=== PATIENT | female | born 1945 | race Two or more races ===

== ENCOUNTER 2024-06-24 20:38 | Emergency (ER) | payer OTHER ==
[~2024-06-24] VITALS: Ht 162.6 cm; Wt 72.6 kg
[2024-06-24] MEDS ORDERED: BRILINTA90 MG (20:42)
[2024-06-24] MEDS ORDERED: ROSUVASTATIN CAL5 MG (20:42)
[2024-06-24 21:57] LABS: HEMATOCRIT 42.5 % (36.0-45.00); HEMOGLOBIN 14.1 g/dL (12.0-15.00); MEAN CELL VOLUME 89.9 fL (80.00-100.00); MEAN CORPUSCULAR HEMOGLOBIN 29.7 pg (27.00-32.0); MEAN CORPUSCULAR HGB CONC 33.1 g/dl (32.0-36.0); PLATELET COUNT 225 K/uL (150-450); RED BLOOD COUNT 4.73 M/uL (4.00-6.00); RED CELL DISTRIBUTION WIDTH 14.9 % (11.5-14.5)
[2024-06-24 22:29] LABS: ALBUMIN 3.8 gm/dL (3.4-5.0); BILIRUBIN TOTAL 0.31 mg/dL (0.3-1.2); CALCIUM 8.9 mg/dL (8.5-10.1); CREATININE SERUM 0.93 mg/dL (0.55-1.02); GFR 58.16; GLOBULINA 3.5 G/DL (2.4-3.5); POTASSIUM 3.99 mEq/L (3.5-5.1); TOTAL PROTEIN 7.3 gm/dL (6.4-8.2)
[2024-06-24 23:07] LABS: PH,URINE 5.5 (5.0-8.0); URINE APPEARANCE Clear; URINE BILIRRUBIN Negative (NEGATIVE); URINE BLOOD Small; URINE COLOR Yellow; URINE GLUCOSE Negative (NEGATIVE); URINE KETONE Trace (NEGATIVE); URINE LEUKOCYTE Trace; URINE NITRATE Negative; URINE PROTEIN Negative (NEGATIVE)
[2024-06-24 23:11] LABS: URINE BACTERIA 527.5 uL (0.0-1933); URINE EPITHELIAL CELLS 13.1 uL (0.0-38.8); URINE RBC 41.9 uL (0.0-20.8); URINE WBC 19.6 uL (0.0-23.2)
[2024-06-24 23:13] LABS: URINE CAST 0.14 uL (0.0-1.40)
[2024-06-25] MEDS ORDERED: ZOLPIDEM TARTRATE 5 MG TABLET PO STA (00:42)
== END 2024-06-25 08:10 ==
LOC: ER 20:40
PROVIDERS: General Practice
DX: F41.8 Other specified anxiety disorders (principal); Z95.0 Presence of cardiac pacemaker; I25.10 Atherosclerotic heart disease of native coronary artery without angina pectoris; I49.5 Sick sinus syndrome; Z20.822 Contact with and (suspected) exposure to COVID-19